=== PATIENT | female | born 1980 | race African-American/Black ===

== ENCOUNTER 2016-12-18 20:16 | Emergency (ER) | payer BC ==
[~2016-12-18 20:16] MED LIST: AUGMENTIN 875/125MG PO; BREO ELLIPTA 11 EACH; EXCEDRIN MIGRAI1 TA1; PROTONIX; SINGULAIR; ZOLOFT; ZYRTEC
== END 2016-12-18 21:54 | disposition home or self-care (01) ==
LOC: SED 20:16
DX: T20.07XA Burn of unspecified degree of neck, initial encounter (principal); T31.0 Burns involving less than 10% of body surface; R03.0 Elevated blood-pressure reading, without diagnosis of hypertension; J45.909 Unspecified asthma, uncomplicated; F17.210 Nicotine dependence, cigarettes, uncomplicated; Z87.11 Personal history of peptic ulcer disease; Z87.19 Personal history of other diseases of the digestive system; X12.XXXA Contact with other hot fluids, initial encounter; Y92.009 Unspecified place in unspecified non-institutional (private) residence as the place of occurrence of the external cause
CPT/HCPCS: 16000; 90471; 90715; 99283